=== PATIENT | female | born 2000 | race Caucasian/White ===

== ENCOUNTER 2022-09-21 20:05 | Emergency (ER) | payer SELFPAY ==
[2022-09-21 21:29] LABS: BASOPHILS ABSOLUTE AUTO 0.04 K/uL (0.00-0.10); BASOPHILS PERCENT AUTO 0.4 % (0.1-1.3); EOSINOPHILS ABSOLUTE AUTO 0.14 K/uL (0.00-0.40); EOSINOPHILS PERCENT AUTO 1.3 % (0.0-5.4); HEMATOCRIT 38.4 % (34.3-46.0); HEMOGLOBIN 12.4 g/dL (11.2-15.5); IMMATURE GRAN ABSOLUTE AUTO 0.03 K/uL (0.00-0.23); IMMATURE GRAN PERCENT AUTO 0.3 % (0.0-0.7); LYMPHOCYTES ABSOLUTE AUTO 1.34 K/uL (0.8-3.3); LYMPHOCYTES PERCENT AUTO 12.8 % (11.4-47.7); MEAN CORPUSCULAR HEMOGLOBIN 27.7 pg (31.6-35.5); MEAN CORPUSCULAR HGB CONC 32.3 g/dL (31.6-35.5); MEAN CORPUSCULAR VOLUME 85.7 fL (81.4-99.0); MONOCYTES PERCENT AUTO 7.7 % (3.3-12.6); NEUTROPHILS ABSOLUTE AUTO 8.09 K/uL (1.0-7.6); NEUTROPHILS PERCENT AUTO 77.5 % (40.0-78.1); PLATELET COUNT,PLT 161 K/uL (130-375); RED BLOOD CELL COUNT 4.48 M/uL (3.77-5.24); WHITE BLOOD CELL COUNT,WBC 10.4 K/uL (3.2-11.0)
[2022-09-21 21:58] LABS: A/G RATIO 1.1 (1.2-2.2); ALANINE AMINOTRANSFERASE,ALT 22 U/L (12-78); ALBUMIN 3.8 g/dL (3.4-5.0); ALKALINE PHOSPHATASE 107 U/L (46-116); ANION GAP 10.3 mmol/L (5.0-14.0); ASPARTATE AMNIOTRANSFERASE,AST 17 U/L (15-37); BILIRUBIN TOTAL 0.4 mg/dL (0.2-1.0); BLOOD UREA NITROGEN,BUN 13 mg/dL (7-18); CARBON DIOXIDE,CO2 26 mmol/L (21-32); CHLORIDE,CL 105 mmol/L (100-108); CREATININE 0.9 mg/dL (0.6-1.0); EST CRCL DRUG DOSING (CG) 99.74 mL/min; ESTIMATED GFR 93 mL/min (>60); GLUCOSE RANDOM 96 mg/dL (74-106); POTASSIUM,K 4.1 mmol/L (3.6-5.2); PROTEIN TOTAL,TP 7.2 g/dL (6.4-8.2); SODIUM,NA 141 mmol/L (140-148)
[2022-09-21] MEDS ORDERED: Sodium Chloride 0.9% 1,000 ML IV ONE (22:03)
[2022-09-21] MEDS ORDERED: Ondansetron 4 MG/2 ML SDV IVPUSH ONE (22:03)
[2022-09-21] MEDS ORDERED: LORazepam 2 MG/ML SDV IVPUSH ONE (23:12)
[2022-09-21] MEDS ORDERED: Sodium Chloride 0.9% 10 ML Syringe FLUSH STA (23:17)
[2022-09-21] MEDS ORDERED: Sodium Chloride 0.9% 100 ML IV STA (23:17)
[2022-09-21] MEDS ORDERED: Iopamidol 755 Mg/ML 100 ML Bottle IV STA (23:17)
[2022-09-22] MEDS ORDERED: Metoclopramide 10 MG/2 ML SDV IVPUSH ONE (00:12)
[2022-09-22] MEDS ORDERED: Metoclopramide 10 MG/2 ML SDV ONE (00:13)
[2022-09-22] MEDS ORDERED: Sodium Chloride 0.9% 100 ML IV STA (00:39)
[2022-09-22] MEDS ORDERED: Iopamidol 755 Mg/ML 100 ML Bottle IV STA (00:39)
[2022-09-22] MEDS ORDERED: Sodium Chloride 0.9% 10 ML Syringe FLUSH ONE (00:39)
[2022-09-22] MEDS ORDERED: LORazepam 2 MG/ML SDV IVPUSH ONE (01:38)
[2022-09-22] MEDS ORDERED: LORazepam 1 MG Tab PO ONE (01:38)
== END 2022-09-22 02:19 | disposition home or self-care (01) ==
LOC: JP.ED 20:05
DX: F41.9 Anxiety disorder, unspecified (principal)
CPT/HCPCS: 36415; 70450; 70496; 70498; 80053; 84443; 85025; 96361; 96374; 96375; 96376; 99285; A9270; J2060; J2405; J2765; J3490; J7030; Q9967